=== PATIENT | female | born 1965 | race Caucasian/White ===

== ENCOUNTER → 2025-02-18 09:41 | Outpatient (REF) | payer MEDICARE, SELFPAY | LOC: RAD 09:41 | PROVIDERS: ATTENDING PHYSICIAN Internal Medicine Gastroenterology; PRIMARYCARE PHYSICIAN Family Medicine | DX: R11.0 Nausea (principal); R13.13 Dysphagia, pharyngeal phase | CPT/HCPCS: 74221 ==